=== PATIENT | male | born 1960 ===

== ENCOUNTER 2024-03-01 10:10 | Day surgery (SDC) | payer OTHER ==
[2024-02-27 10:54] LABS: HEMATOCRIT 41.1 % (39.0-48.0); HEMOGLOBIN 13.9 g/dL (13-16.00); MEAN CELL VOLUME 89.2 fL (80.0-100.00); MEAN CORPUSCULAR HEMOGLOBIN 30.1 pg (27.00-32.0); MEAN CORPUSCULAR HGB CONC 33.7 g/dl (32.0-36.0); PLATELET COUNT 266 K/uL (150-450); RED CELL DISTRIBUTION WIDTH 13.8 % (11.5-14.5)
[2024-02-27 10:59] LABS: PH,URINE 5.5 (5.0-8.0); URINE APPEARANCE Clear; URINE BILIRRUBIN Negative (NEGATIVE); URINE BLOOD Negative; URINE COLOR Yellow; URINE GLUCOSE Negative (NEGATIVE); URINE LEUKOCYTE Negative; URINE NITRATE Negative; URINE PROTEIN Negative (NEGATIVE); URINE UROBILINOGEN 0.2 E.U./dl
[2024-02-27 11:19] LABS: URINE BACTERIA 0 uL (0.0-1933); URINE EPITHELIAL CELLS 0.3 uL (0.0-38.8); URINE RBC 1.2 uL (0.0-20.8); URINE WBC 1.6 uL (0.0-23.2)
[2024-02-27 11:31] LABS: CALCIUM 8.9 mg/dL (8.5-10.1); CREATININE SERUM 0.9 mg/dL (0.70-1.30); GFR 85.79; INR 1.03; PARTIAL THROMBOPLASTIN TIME 27.7 SECONDS (22.0-34.0); POTASSIUM 4.47 mEq/L (3.5-5.1); PROTHROMBIN TIME 10.8 SECONDS (9.0-11.5)
[~2024-03-01 10:10] MED LIST: COZAAR25 MG PO; HUMALOG100 UNIT/1 SUBCUTANEO; ISOSORBIDE DINI30 MG; LANTUS SOL100 UNIT/1 SUBCUTANEO; PLAVIX75 MG; TOPROL XL50 MG PO
[2024-03-01] MEDS ORDERED: BUPIVACAINE HCL 30 ML VIAL IJ ONE (14:30)
[2024-03-01] MEDS ORDERED: CEFAZOLIN SODIUM 1,000 MG VIAL IV ONE (14:30)
[2024-03-01] MEDS ORDERED: TYLENOL ARTHRI650 MG PO (15:20)
[2024-03-01] MEDS ORDERED: TRAMADOL HCL50 MG PO (15:20)
[2024-03-01] MEDS ORDERED: NEURONTIN300 MG PO (15:20)
[2024-03-01] MEDS ORDERED: MIRALAX17 GM PO (15:21)
== END 2024-03-01 21:05 | disposition home or self-care (01) ==
LOC: CIR.AMB 10:10
PROVIDERS: ATTEND Surgery
DX: K42.0 Umbilical hernia with obstruction, without gangrene (principal); Z53.31 Laparoscopic surgical procedure converted to open procedure; Z88.6 Allergy status to analgesic agent; I10 Essential (primary) hypertension; E11.9 Type 2 diabetes mellitus without complications
CPT/HCPCS: 49594; C1781